=== PATIENT | male | born 1970 | race Caucasian/White ===

== ENCOUNTER 2017-04-18 12:02 | Inpatient (IN) | payer MEDICAID, OTHER ==
[~2017-04-18] VITALS: Ht 167.6 cm; Wt 119.0 kg
[2017-04-18] MEDS ORDERED: morphine 4 MG/ML VIAL IV STA (12:06)
[2017-04-18] MEDS ORDERED: ONDANSETRON 4 MG INJ IV STA (12:06)
[2017-04-18] MEDS ORDERED: NITROGLYCERIN 2% 1 GM OINT PKT TD STA (12:06)
[2017-04-18 12:29] LABS: ADD SCAN DIFF NO
[2017-04-18] MEDS ORDERED: NITROGLYCERIN (SL) 0.4 MG TAB SL PRN ×2 (12:30→14:30)
[2017-04-18 12:32] LABS: BASOPHILS % 0.4 % (0.0-2.0); EOSINOPHILS # 0.2 10^3/ul (0.0-0.5); EOSINOPHILS % 2.2 % (0.0-7.0); HEMATOCRIT 47.7 % (42.0-52.0); HEMOGLOBIN 15.9 g/dl (14.0-18.0); LYMPHOCYTES # 3.4 10^3/ul (0.8-2.9); LYMPHOCYTES % 35.9 % (15.0-51.0); MEAN CORPUSCULAR HEMOGLOBIN 28.3 pg (29.0-33.0); MEAN CORPUSCULAR HGB CONC 33.3 g/dl (32.0-37.0); MEAN PLATELET VOLUME 9.7 fl (7.4-10.4); MONOCYTES % 10.5 % (0.0-11.0); NEUTROPHIL # 4.8 10^3/ul (1.6-7.5); NEUTROPHILS % 50.7 % (39.0-77.0); PLATELET COUNT 278 10^3/UL (140-415); RED BLOOD COUNT 5.61 10^6/ul (4.70-6.10); RED CELL DISTRIBUTION WIDTH 12.7 % (11.5-14.5); WHITE BLOOD COUNT 9.4 10^3/ul (4.8-10.8)
[2017-04-18 12:48] LABS: INR 0.8; PROTIME 11.1 Sec (12.2-14.2); PT RATIO 0.9
[2017-04-18 12:49] LABS: PARTIAL THROMBOPLASTIN TIME 31.7 Sec (25.0-35.0)
--- NOTE | 2017-04-18 12:51 | RADRPT ---
PROCEDURE: XR Chest. CLINICAL INDICATION: Chest pain. TECHNIQUE: Single frontal view of the chest was obtained. COMPARISON: None FINDINGS: The soft tissues are generous. Monitoring electrodes project across the chest. The bony elements a re normal. The heart is enlarged. The cardiomediastinal silhouette and hilar structures are normal . The pulmonary vasculature is normal. There is a left-sided aorta. The lungs are clear. The costo phrenic angles are normal. IMPRESSION: 1. Mild cardiomegaly. 2. Obesity. RPTAT:AAJJ Physician Emilie Date Time Electronically viewed and signed by Physician Emilie on 04/18/2017 12:51 /
[2017-04-18 12:53] LABS: ANION GAP 13 (8-16); BLOOD UREA NITROGEN 19 mg/dl (7-20); CALCIUM 9.3 mg/dl (8.4-10.2); CARBON DIOXIDE 27 mmol/L (21-31); CHLORIDE 102 mmol/L (97-110); CREATININE 0.73 mg/dl (0.61-1.24); GLUCOSE 121 mg/dl (70-220); POTASSIUM 3.8 mmol/L (3.5-5.1); SODIUM 138 mmol/L (135-144)
[2017-04-18 13:06] LABS: TROPONIN-I < 0.012 ng/ml (0.00-0.12)
[2017-04-18] MEDS ORDERED: ONDANSETRON 4 MG INJ IV PRN (13:30)
[2017-04-18] MEDS ORDERED: ACETAMINOPHEN 325 MG TAB PO PRN (13:30)
[2017-04-18] MEDS ORDERED: hydrALAzine 20 MG INJ IV ONE (14:00)
--- NOTE | 2017-04-18 14:26 | HP ---
Date/Time of Note Date/Time of Note DATE: 04/18/17 TIME: 14:20 Assessment/Plan VTE Prophylaxis VTE Prophylaxis Intervention: SCD's Lines/Catheters IV [facility]ter Type [facility]from [facility] Saline Lock Assessment/Plan Chief Complaint/Hosp Course Assessment and plan 1. Chest pain. Will follow so troponins. Will get echocardiogram. Will get lawn and garden technician to follow. Monitor in telemetry. 2. Essential hypertension. Will provide with antihypertensives and adjust as needed 3. Obesity. Weight reduction was advised. GERD prophylaxis: PPI DVT prophylaxis: His SCDs Admission process time greater than 30 minutes Discussed plan of care with Dr. Crawford Problems: HPI/ROS Admit Date/Time Admit Date/Time Hx of Present Illness This is a 46-year-old male obese, with no reported past medical history who came to [facility] due to reports of chest pain. According to the patient had been having some chest pain more notable on exertion. He did have some associated shortness of breath. He does report the chest pain has been more intermittent more on midsternal area. Denies any chest pain on palpation of the chest. Reports he does get to 5-8 out of 10 in intensity when he does have exacerbations of the pain. He also does report having a familiar history of heart disease with his father dying of myocardial infarction at age of 74. He was brought in by [facility] due to the aformentiond issues. Upon examination he did have serial troponin that was initially negative. His initial EKG did show possible first-degree AV block with incomplete right bundle branch block. Of note he was provided with nitro in the ER. He also had a blood pressure 151/100. Of note chest x-ray showed only mild cardiomegaly. At present patient does still report having some intermittent chest pain pressure-like in nature nonradiating. We will evaluate him for the aformentioned issues. ROS 12 point review of systems obtained and entirely negative except that mentioned in history of present illness PMH/Family/Social Past Medical History Medical History: no pertinent history Family History Significant Family History: other (Father: Heart disease and from myocardial infarction at age of 74) Social History Alcohol Use: none Smoking Status: Never smoker Drug Use: none Exam/Review of Systems Vital Signs Vitals Vital Signs Date Time Temp Pulse Resp B/P Pulse Ox O2 Delivery O2 Flow Rate FiO2 04/18/17 14:15 18 149/70 98 04/18/17 12:27 Nasal Cannula 2 04/18/17 12:07 98.5 94 Exam Constitutional: alert, oriented, other (Obese) Psych: nl mood/affect Head: normocephalic Eyes: nl conjunctiva Neck: supple, No jvd Respiratory: clear to auscultation, normal air movement Cardiovascular: other Gastrointestinal: non-tender, soft Musculoskeletal: nl extremities to inspection Extremities: normal pulses Neurological: INPATIENT PHARMACIST II-XII intact, nl mental status, nl speech Labs Result Diagram: 04/18/17 1215 04/18/17 1215 Medications Medications Current Medications Acetaminophen (Tylenol Tab) 650 mg Q6H PRN PO PAIN LEVEL 1-3 OR FEVER; Start at 14:30 Acetaminophen (Tylenol Supp) 650 mg Q6H PRN OR PAIN LEVEL 1-3 OR FEVER; Start 04/18/17 at 14:30 Acetaminophen/ Hydrocodone Bitart ([place] (5/325)) 1 tab Q6H PRN PO MODERATE PAIN LEVEL 4-6; Start 04/18/17 at 14:30 Acetaminophen/ Hydrocodone Bitart ([place] (5/325)) 2 tab Q6H PRN PO SEVERE PAIN LEVEL 7-10; Start 04/18/17 at 14:30 Morphine Sulfate (morphine) 2 mg Q4H PRN IV SEVERE PAIN LEVEL 7-10; Start 04/18 at 14:30 Docusate Sodium (Colace) 100 mg Q12H PRN PO CONSTIPATION; Start 04/18/17 at 14: 30 Magnesium Hydroxide (Milk Of Mag) 30 ml DAILY PRN PO CONSTIPATION; Start at 14:30 Bisacodyl (Dulcolax Supp) 10 mg DAILY PRN [place] CONSTIPATION; Start 04/18/17 at 14 :30 Pantoprazole (Protonix Iv) 40 mg DAILY@06 IV ; Start 04/19/17 at 06:00 Aspirin (Aspirin) 81 mg DAILY PO ; Start 04/20/17 at 09:00 Metoprolol Tartrate (Lopressor) 12.5 mg BID PO ; Start 04/18/17 at 21:00 Nitroglycerin (Nitroglycerin (Sl Tab) 0.4 Mg) 1 tab Q5M PRN SL CHEST PAIN; Start 04/18/17 at 14:30 REGIDOR,FRIEDA Apr 18, 2017 14:26
[2017-04-18] MEDS ORDERED: MAGNESIUM HYDROXIDE 30ML CUP PO PRN (14:30)
[2017-04-18] MEDS ORDERED: HYDROCODONE/APAP (5/325) TAB PO PRN ×2 (14:30)
[2017-04-18] MEDS ORDERED: NACL 0.9% 3 ML SYG IV SCH (14:30)
[2017-04-18] MEDS ORDERED: ACETAMINOPHEN 650 MG SUPP PR PRN (14:30)
[2017-04-18] MEDS ORDERED: morphine 2 MG INJ IV PRN (14:30)
[2017-04-18] MEDS ORDERED: BISACODYL 10 MG SUPP PR PRN (14:30)
[2017-04-18] MEDS ORDERED: DOCUSATE SODIUM 100 MG CAP PO PRN (14:30)
[2017-04-18 14:55] VITALS: PULSE 86
[2017-04-18 15:05] VITALS: BP 132/68; PULSE 87; RESP 18
[2017-04-18 15:16] VITALS: Ht 167.6 cm; Wt 119.0 kg
--- NOTE | 2017-04-18 15:41 | ERA ---
ER Documentation Chief Complaint Date/Time DATE: 04/18/17 TIME: 15:39 Chief Complaint CP FOR A FEW DAYS SENT BY CLINIC. HIGH BP AND DIZZINESS PER PT. NO NEURO HPI Patient is a 46-year-old male with hypertension who presents with chest pain. He was brought in by ambulance. He was given aspirin and 2 nitroglycerin. He has had this pain for the past 5 days but it comes and goes. It has been worsening in intensity. It is in the midsternal area. He has palpitations as well. He was sent from the [facility] where he saw his doctor who sent him to the emergency department for further workup and admission. ROS All systems reviewed and are negative except as per history of present illness. Medications Home Meds No Active Prescriptions or Reported Meds Allergies Allergies: Coded Allergies: Penicillins (Verified Allergy, Severe, 04/18/17) ondansetron (Verified Allergy, Severe, 04/18/17) PMhx/Soc Positive for hypertension History of Surgery: No Anesthesia Reaction: No Hx Neurological Disorder: No Hx Respiratory Disorders: No Hx Cardiac Disorders: No Hx Psychiatric Problems: No Hx Miscellaneous Medical Probl: No Hx Alcohol Use: No Hx Substance Use: No Hx Tobacco Use: No Smoking Status: Never smoker FmHx Family History: coronary disease Physical Exam Vitals Vital Signs Date Time Temp Pulse Resp B/P Pulse Ox O2 Delivery O2 Flow Rate FiO2 04/18/17 12:27 Nasal Cannula 2 04/18/17 12:07 98.5 94 21 151/100 98 Physical Exam Const: No acute distress Head: Atraumatic Eyes: Normal Conjunctiva ENT: Normal External Ears, Nose and Mouth. Neck: Full range of motion..~ No meningismus. Resp: Clear to auscultation bilaterally Cardio: Regular rate and rhythm, no murmurs Abd: Soft, non tender, non distended. Normal bowel sounds Skin: No petechiae or rashes Back: No midline or flank tenderness Ext: No cyanosis, or edema Neur: Awake and alert Psych: Normal Mood and Affect Result Diagram: 04/18/17 1215 04/18/17 1215 Results 24 hrs Laboratory Tests Test 04/18/17 12:15 White Blood Count 9.410^3/ul Red Blood Count 5.6110^6/ul Hemoglobin 15.9g/dl Hematocrit 47.7% Mean Corpuscular Volume 85.0fl Mean Corpuscular Hemoglobin 28.3pg Mean Corpuscular Hemoglobin Concent 33.3g/dl Red Cell Distribution Width 12.7% Platelet Count 68984^3/UL Mean Platelet Volume 9.7fl Neutrophils % 50.7% Lymphocytes % 35.9% Monocytes % 10.5% Eosinophils % 2.2% Basophils % 0.4% Nucleated Red Blood Cells % 0.0/100WBC Neutrophils # 4.810^3/ul Lymphocytes # 3.410^3/ul Monocytes # 1.010^3/ul Eosinophils # 0.210^3/ul Basophils # 0.010^3/ul Nucleated Red Blood Cells # 0.010^3/ul Prothrombin Time 11.1Sec Prothrombin Time Ratio 0.9 INR International Normalized Ratio 0.80 Activated Partial Thromboplast Time 31.7Sec Sodium Level 138mmol/L Potassium Level 3.8mmol/L Chloride Level 102mmol/L Carbon Dioxide Level 27mmol/L Anion Gap 13 Blood Urea Nitrogen 19mg/dl Creatinine 0.73mg/dl Glucose Level 121mg/dl Calcium Level 9.3mg/dl Troponin I < 0.012ng/ml Current Medications Medications (Trade) Dose Ordered Sig/Cindy Route PRN Reason Start Time Stop Time Status Last Admin Dose Admin Nitroglycerin (Nitroglycerin 2% Oint) 1 inch ONCE STAT TD 04/18/17 12:06 04/18/17 12:08 DC 04/18/17 12:39 Nitroglycerin (Nitroglycerin (Sl Tab) 0.4 Mg) 1 tab Q5M UP TO 3 DOSES PRN SL CHEST PAIN 04/18/17 12:30 Morphine Sulfate (morphine) 4 mg ONCE STAT IV 04/18/17 12:06 04/18/17 12:08 DC 04/18/17 12:40 Ondansetron HCl (Zofran Inj) 4 mg ONCE STAT IV 04/18/17 12:06 04/18/17 12:08 DC 04/18/17 12:39 Procedures/MDM EKG read by me: Rate/Rhythm: Regular rate and rhythm at a normal rate Intervals: Normal Impression: No evidence of ischemia or arrhythmia Chest x-ray shows no pneumonia or pneumothorax per radiology. Patient is a 46-year-old male with cardiac risk factors who presents with chest pain. He was given aspirin nitroglycerin and feels better. He was given nitroglycerin and morphine in the emergency department. The patient will be admitted to the care of Dr. Crawford from the panel team for admission for further workup for acute coronary syndrome. I doubt pneumonia, pneumothorax, pulmonary embolism, or aortic dissection. Departure Diagnosis: Primary Impression: Chest pain Qualified Code: R07.9 - Chest pain, unspecified type Condition: ANNE Rodriguez MD Apr 18, 2017 15:41
[2017-04-18 16:20] VITALS: PULSE 80
[2017-04-18 16:47] LABS: CREATINE KINASE 66 IU/L (23-200)
[2017-04-18 17:01] LABS: CK-MB 1.24 ng/ml (0.0-2.4); TROPONIN-I < 0.012 ng/ml (0.00-0.12)
[2017-04-18] MEDS: ACETAMINOPHEN 325 MG TAB PO PRN (18:05)
[2017-04-18 18:54] LABS: CREATINE KINASE 61 IU/L (23-200)
[2017-04-18 19:07] LABS: CK-MB 1.15 ng/ml (0.0-2.4); TROPONIN-I < 0.012 ng/ml (0.00-0.12)
[2017-04-18] MEDS: METOPROLOL 25 MG TAB PO SCH (20:15)
[2017-04-18 20:35] VITALS: BP 115/54; RESP 20
[2017-04-18 20:41] VITALS: PULSE 80
[2017-04-18 21:02] LABS: CREATINE KINASE 59 IU/L (23-200)
[2017-04-18 21:18] LABS: CK-MB 1.08 ng/ml (0.0-2.4); TROPONIN-I < 0.012 ng/ml (0.00-0.12)
[2017-04-19] VITALS (10 sets, daily range): BP systolic 126–157; BP diastolic 57–80; PULSE 67–96; RESP 18–20
[2017-04-19 01:39] LABS: CREATINE KINASE 64 IU/L (23-200)
[2017-04-19 01:57] LABS: CK-MB 1.14 ng/ml (0.0-2.4); TROPONIN-I < 0.012 ng/ml (0.00-0.12)
[2017-04-19] MEDS: ACETAMINOPHEN 325 MG TAB PO PRN (03:23)
[2017-04-19] MEDS ORDERED: PANTOPRAZOLE 40 MG INJ IV SCH (06:00)
[2017-04-19 07:27] LABS: ALBUMIN 4.4 g/dl (3.3-4.9); ALBUMIN/GLOBULIN RATIO 1.46; BILIRUBIN,INDIRECT 0.5 mg/dl (0-1.1); BILIRUBIN,TOTAL 0.5 mg/dl (0.2-1.3); CALCIUM 9.1 mg/dl (8.4-10.2); CHOL/HDL RATIO 5.2 RATIO; CREATININE 0.68 mg/dl (0.61-1.24); PHOSPHORUS 3.3 mg/dl (2.5-4.9); TOTAL PROTEIN 7.4 g/dl (6.1-8.1)
[2017-04-19 07:41] LABS: T3 UPTAKE 32.6 % (23.5-40.5)
[2017-04-19 07:55] LABS: THYROID STIMULATING HORMONE 2.98 MIU/L (0.465-4.680)
[2017-04-19] MEDS: METOPROLOL 25 MG TAB PO SCH (08:26)
--- NOTE | 2017-04-19 14:37 | PN ---
DATE: 04/19/2017 SUBJECTIVE DATA: Complains of some chest discomfort. Complains of left lower extremity cramping pain. OBJECTIVE DATA: VITAL SIGNS: Temperature 98.5, pulse rate 74, respiratory rate 18, blood pressure 127/80, oxygen saturation 97% on room air. GENERAL: This is an obese male lying in bed in no apparent distress. HEENT: Head normocephalic and atraumatic. Eyes: Anicteric sclerae. Conjunctivae clear. ENT: Nasal septum is midline. Oral mucosa is moist. NECK: Supple. No JVD noticed. RESPIRATORY: Bilaterally clear to auscultation. No adventitious breath sounds. No use of accessory muscles of respiration. CARDIAC: Regular rate and rhythm. S1 and S2 heard. ABDOMEN: Soft, nontender and nondistended. Bowel sounds positive in all 4 quadrants. GENITOURINARY: Deferred. EXTREMITIES: No cyanosis, no clubbing, no edema. Peripheral pulses palpable. NEUROLOGIC: The patient is awake, alert and oriented. Cranial nerves are grossly intact. LABORATORY AND DIAGNOSTIC DATA: Sodium 140, potassium 4.0, chloride 103, carbon dioxide 20, anion gap 13, BUN 17, creatinine 0.68, glucose 105, calcium 9.1, phosphorus 3.3, magnesium 2.0, hemoglobin A1c 6.0. Triglycerides 156, total cholesterol 210, LDL 139, HDL 40. ASSESSMENT AND PLAN 1. Chest pain. To rule out acute coronary syndrome. Serial troponins are so far negative. Pending 2D echocardiogram. Pending cardiology evaluation. The patient will be continued on aspirin. 2. Essential hypertension. The patient will be continued on antihypertensives. 3. Dyslipidemia. Suboptimal fasting lipid panel. Will reinforce a low cholesterol diet. We will obtain dietary consult. 5. Prediabetes. Hemoglobin A1c of 6.0. Will obtain dietary consult. 6. Obesity. BMI of 42.3 kilograms per meter squared. Will obtain dietary consult. 7. Fluid, electrolytes and nutrition. Low cholesterol diet. 8. Deep venous thrombosis prophylaxis with ambulation. 9. Gastrointestinal prophylaxis with proton pump inhibitors. 10. Continue current management. Await cardiology evaluation. Case discussed with Dr. Park. LEO PARK MD, AM/CLAIR Conf#: [id number] DID#: [id number] [facility]
--- NOTE | 2017-04-19 15:27 | RADRPT ---
Echocardiogram Report Patient Name: MATILDE CERRATO Gender: Male Date: 1970 Study Date: 19-Apr-2017 Engineering Systems Analyst: TORIE Location: E Ref. Physician: FRIEDA WELCH Quality: Adequate Procedures: Transthoracic echocardiogram with complete 2D, M-Mode, and Doppler examination. Indications: Chest Pain. 2D/M Mode Doppler Measurement Value Normal Ranges Measurement Value Normal Ranges AoR Diam MM 3.3 cm AV Peak Alex 1.1 m/sec ACS MM 2.3 cm AV Peak PG 5.3 mmHg LVIDd 2D 4.2 3.5 - 5.6 cm LVOT Peak Alex 0.9 m/sec LVIDs 2D 2.8 2.1 - 4.1 cm LVOT Peak PG 3.5 mmHg LVPWd 2D 1.3 0.6 - 1.1 cm MV E Peak Alex 0.7 m/sec IVSd 2D 1.7 0.6 - 1.1 cm MV A Peak Alex 0.4 m/sec EDV 2D 80.6 cm3 MV E/A 1.6 ESV 2D 21.7 cm3 MV Decel Time 137 msec LA Dimen 2D 4.3 2.3 - 4.0 cm MV Decel [place] 5 MV E/A 1.6 PV Peak Alex 0.8 m/sec PV Peak PG 3.0 mmHg Findings Left Ventricle: Normal left ventricular systolic function. Normal left ventricular cavity size. Mild concentric left ventricular hypertrophy. Ejection fraction is visually estimated at 5560 %. Tissue Doppler/Mitral Doppler indices are within normal limits. Right Ventricle: Normal right ventricular size. Left Atrium: There is mild enlargement of left atrium. Right Atrium: The right atrium is normal in size. Atrial Septum: Normal atrial septum. Mitral Valve: Normal appearance and function of the mitral valve with trace physiologic regurgitation. Aortic Valve: No significant aortic stenosis or insufficiency. Normal trileaflet aortic valve structure. Tricuspid Valve: Normal appearance and function of the tricuspid valve with trace physiologic regurgitation. Pulmonic Valve: Normal pulmonic valve appearance. No evidence of pulmonic regurgitation. Pericardium: Normal pericardium with no significant pericardial effusion. No pleural effusion noted. Aorta: Normal aortic root. IVC: Normal size and normal respiratory collapse consistent with normal right atrial pressure. Pulmonary Artery: Normal pulmonary artery size. Conclusions 1.The left ventricle is normal in size and systolic function. 2.Estimated left ventricular ejection fraction of 55-60%. 3.Mild concentric left ventricular hypertrophy. 4.Mild left atrial enlargement. Electronically Signed By: Maikel Zhu 19-Apr-2017 15:26:13 -0700 Patient Name: MATILDE CERRATO Study Date: 19-Apr-[id number]
--- NOTE | 2017-04-19 16:23 | CONS ---
Date/Time of Note Date/Time of Note DATE: 04/19/17 TIME: 16:18 Assessment/Plan Assessment/Plan Chief Complaint/Hosp Course Assessment: Chest pain - ruled out for myocardial infarction Hypertension Dyslipidemia Pre-diabetes Obesity Recommendations: -echocardiogram showed normal LVEF 55-60% without segmental wall motion abnormalities, mild LVH -continue aspirin 81mg daily -start lisinopril 10mg daily, up titrate as needed -start atorvastatin 10mg daily -outpatient cardiac stress testing Problems: Consultation Date/Type/Reason Admit Date/Time Type of Consultation: Cardiology Reason for Consultation chest pain Hx of Present Illness The patient is a 46 year-old male who presents with chest pain. He describes six days of intermittent chest pain with associated lightheadedness. His EKG showed normal sinus rhythm, first degree AV block, incomplete right bundle branch block, and no acute ischemic changes. Serial troponins have been negative x 3. His symptoms have resolved and he has no further chest pain. 14 point review of systems negative other than per HPI. Past Medical History Medical History: no pertinent history Past Surgical History Past Surgical Hx: no surgical history Family History Significant Family History: heart disease (father with myocardial infarction in his 70s) Social History Alcohol Use: none Smoking Status: Never smoker Drug Use: none Exam/Review of Systems Vital Signs Vitals Vital Signs Date Time Temp Pulse Resp B/P Pulse Ox O2 Delivery O2 Flow Rate FiO2 04/19/17 16:14 75 04/19/17 15:24 98.5 18 140/77 97 04/18/17 15:05 Room Air 04/18/17 12:27 2 Intake and Output 04/18/17 04/18/17 04/19/17 15:00 23:00 07:00 Intake Total 720 ml 600 ml Balance 720 ml 600 ml Exam Constitutional: alert, obese, well developed Psych: nl mood/affect, no complaints Head: atraumatic, normocephalic Eyes: nl conjunctiva, nl lids ENMT: nl external ears & nose, nl nasal mucosa & septum Neck: non-tender, supple, No jvd Respiratory: clear to auscultation, normal air movement Cardiovascular: regular rate and rhythm, No murmurs/extra sounds Gastrointestinal: non-tender, soft Musculoskeletal: nl extremities to inspection, No swelling Extremities: No clubbing, No cyanosis, No edema Neurological: nl mental status, nl speech Skin: nl turgor, No rash or lesions Results Result Diagram: 04/18/17 1215 04/19/17 0600 Results 24 hrs Laboratory Tests Test 04/18/17 18:07 04/18/17 20:15 04/19/17 00:38 04/19/17 06:00 Creatine Kinase 61 59 64 Creatine Kinase Index 1.9 1.8 1.8 Creatinine Kinase MB (Mass) 1.15 1.08 1.14 Troponin I < 0.012 < 0.012 < 0.012 Sodium Level 140 Potassium Level 4.0 Chloride Level 103 Carbon Dioxide Level 28 Anion Gap 13 Blood Urea Nitrogen 17 Creatinine 0.68 Glucose Level 105 Hemoglobin A1c 6.0 H Calcium Level 9.1 Phosphorus Level 3.3 Magnesium Level 2.0 Total Bilirubin 0.5 Direct Bilirubin 0.00 Indirect Bilirubin 0.5 Aspartate Amino Transf (AST/SGOT) 31 Alanine Aminotransferase (ALT/SGPT) 52 Alkaline Phosphatase 68 Total Protein 7.4 Albumin 4.4 Globulin 3.00 Albumin/Globulin Ratio 1.46 Triglycerides Level 156 H Cholesterol Level 210 H LDL Cholesterol, Calculated 139 HDL Cholesterol 40 Cholesterol/HDL Ratio 5.2 Thyroid Stimulating Hormone (TSH) 2.980 Free Thyroxine Index 2.90 Thyroxine (T4) 8.9 Triiodothyronine (T3) Uptake 32.6 Medications Medications Current Medications Acetaminophen (Tylenol Tab) 650 mg Q6H PRN PO PAIN LEVEL 1-3 OR FEVER Last administered on 04/19/17 03:23; Admin Dose 650 MG; Start 04/18/17 at 14:30 Acetaminophen (Tylenol Supp) 650 mg Q6H PRN [place] PAIN LEVEL 1-3 OR FEVER; Start 04/18/17 at 14:30 Acetaminophen/ Hydrocodone Bitart ([place] (5/325)) 1 tab Q6H PRN PO MODERATE PAIN LEVEL 4-6; Start 04/18/17 at 14:30 Acetaminophen/ Hydrocodone Bitart ([place] (5/325)) 2 tab Q6H PRN PO SEVERE PAIN LEVEL 7-10; Start 04/18/17 at 14:30 Morphine Sulfate (morphine) 2 mg Q4H PRN IV SEVERE PAIN LEVEL 7-10 Last administered on 04/19/17 07:02; Admin Dose 2 MG; Start 04/18/17 at 14:30 Docusate Sodium (Colace) 100 mg Q12H PRN PO CONSTIPATION; Start 04/18/17 at 14: 30 Magnesium Hydroxide (Milk Of Mag) 30 ml DAILY PRN PO CONSTIPATION; Start at 14:30 Bisacodyl (Dulcolax Supp) 10 mg DAILY PRN [place] CONSTIPATION; Start 04/18/17 at 14 :30 Aspirin (Aspirin) 81 mg DAILY PO ; Start 04/20/17 at 09:00 Metoprolol Tartrate (Lopressor) 12.5 mg BID PO Last administered on 04/19/17t 08:26; Admin Dose 12.5 MG; Start 04/18/17 at 21:00 Nitroglycerin (Nitroglycerin (Sl Tab) 0.4 Mg) 1 tab Q5M PRN SL CHEST PAIN; Start 04/18/17 at 14:30 Pantoprazole (Protonix Tab) 40 mg DAILY@06 PO ; Start 04/20/17 at 06:00 LES AGUILAR MD Apr 19, 2017 16:23
[2017-04-19] MEDS: LISINOPRIL 10 MG TAB PO SCH (16:56)
[2017-04-19] MEDS ORDERED: ATORVASTATIN 10 MG TAB PO SCH (21:00)
[2017-04-20] VITALS (9 sets, daily range): BP systolic 115–126; BP diastolic 61–73; PULSE 64–74; RESP 20
[2017-04-20] MEDS ORDERED: PANTOPRAZOLE (EC) 40 MG TAB PO SCH (06:00)
[2017-04-20 07:27] LABS: ADD SCAN DIFF NO
[2017-04-20 07:30] LABS: BASOPHILS % 0.4 % (0.0-2.0); EOSINOPHILS # 0.4 10^3/ul (0.0-0.5); EOSINOPHILS % 3.8 % (0.0-7.0); HEMATOCRIT 46.8 % (42.0-52.0); HEMOGLOBIN 15.8 g/dl (14.0-18.0); LYMPHOCYTES # 2.5 10^3/ul (0.8-2.9); LYMPHOCYTES % 25.3 % (15.0-51.0); MEAN CORPUSCULAR HEMOGLOBIN 28.6 pg (29.0-33.0); MEAN CORPUSCULAR HGB CONC 33.8 g/dl (32.0-37.0); MEAN CORPUSCULAR VOLUME 84.8 fl (82.0-101.0); MEAN PLATELET VOLUME 9.7 fl (7.4-10.4); MONOCYTE # 1.2 10^3/ul (0.3-0.9); MONOCYTES % 12.1 % (0.0-11.0); NEUTROPHIL # 5.7 10^3/ul (1.6-7.5); NEUTROPHILS % 58.1 % (39.0-77.0); PLATELET COUNT 291 10^3/UL (140-415); RED BLOOD COUNT 5.52 10^6/ul (4.70-6.10); RED CELL DISTRIBUTION WIDTH 12.9 % (11.5-14.5); WHITE BLOOD COUNT 9.9 10^3/ul (4.8-10.8)
[2017-04-20 07:58] LABS: CALCIUM 8.9 mg/dl (8.4-10.2); CREATININE 0.86 mg/dl (0.61-1.24); POTASSIUM 4.4 mmol/L (3.5-5.1)
[2017-04-20 08:04] LABS: MAGNESIUM 2.1 mg/dl (1.7-2.5); PHOSPHORUS 4.1 mg/dl (2.5-4.9)
[2017-04-20] MEDS ORDERED: ASPIRIN 81 MG TAB PO SCH (09:00)
--- NOTE | 2017-04-20 09:01 | PDOCDIS ---
Discharge Instructions DIAGNOSIS Discharge Diagnosis Dyslipidemia. Prediabetes. CONDITION Patient Condition: Stable HOME CARE INSTRUCTIONS: Diet Instructions: Low Fat /CholesterolSpecial Diet: Low carbohydrate FOLLOW UP/APPOINTMENTS Follow-up Plan Morales Rebollar MD Specialty: Internal Medicine Office Address: [address] [place] [address] [place], [place] [id number] Office OTHER ORDERS: Other Orders: 1. Take medications as per prescription. 2. Take a low-cholesterol, low carbohydrate diet. 3. Resume activities as tolerated. 4. Follow-up with your primary care physician in 1 week. If you do not have a primary care physician, please call Dr. Morales Rebollar's office. Please have your primary care physician arrange for outpatient cardiology follow-up for a stress test. 5. Please call 911 or go to the nearest emergency room if you have any significant chest pain or shortness of breath. LEO FIELDS NP Apr 20, 2017 09:01
[2017-04-20] MEDS ORDERED: LISI10TA2 PO (09:02)
[2017-04-20] MEDS ORDERED: ASPI81TA3 PO (09:02)
[2017-04-20] MEDS ORDERED: ATOR10TA65 PO (09:02)
[2017-04-20] MEDS: LISINOPRIL 10 MG TAB PO SCH (09:34)
--- NOTE | 2017-04-20 09:45 | DS ---
DATE OF ADMISSION: 04/18/2017 DATE OF DISCHARGE: 04/20/2017 FINAL DIAGNOSES: 1. Chest pain. Acute coronary syndrome ruled out. 2. Essential hypertension. 3. Dyslipidemia. 4. Prediabetes. 5. Obesity. CONSULTATIONS: Maikel Zhu MD HOSPITAL COURSE: This is a 46-year-old obese male with no significant past medical history, as per the patient, who came to [facility] because of reports of chest pain. According to the patient, he has been having some chest pain, more noticeable on exertion. The patient also complained of some associated shortness of breath. The patient also has a family history of heart disease. Provided the patient's history of present illness, a clinical decision was made to admit the patient to inpatient setting to have him further evaluated. The patient was admitted to inpatient telemetry floor. A cardiology consult was obtained. Serial troponins were obtained. The patient's serial troponins remained negative. The patient's 2D echocardiogram showed preserved left ventricular ejection fraction. The patient was noticed to have essential hypertension. The patient was started on appropriate antihypertensives. The patient was noticed to be prediabetic with a hemoglobin A1c of 6.0. The patient was also noticed to have dyslipidemia with high triglycerides, high total cholesterol and suboptimal LDL. Consequently, the patient was started on statins. Weight reduction was advised. Cardiology evaluated the patient and recommended outpatient cardiac stress test. The patient was cleared by cardiology to be discharged home. DISCHARGE DISPOSITION AND PLAN: The patient will be discharged home today. The patient was instructed to take medications as per prescription. He was instructed to take a low-cholesterol, low-carbohydrate diet. The patient was instructed to resume activities as tolerated. He was instructed to follow up with his primary care physician in 1 week and if he does not have a primary care physician, to please call Dr. Morales Rebollar's office. The patient was instructed to have his primary care physician to arrange for outpatient cardiology followup for a stress test. He was instructed to call 911 or go to the nearest emergency room if he has any significant chest pain or shortness of breath. The patient verbalized understanding of his discharge instructions. CONDITION AT DISCHARGE: Stable. DISCHARGE PHYSICAL EXAMINATION: GENERAL: This is an obese male lying in bed in no apparent distress. HEENT: Head normocephalic and atraumatic. Eyes: Anicteric sclerae. Conjunctivae clear. ENT: Nasal septum is midline. Oral mucosa is moist. NECK: Supple. No JVD noticed. RESPIRATORY: Bilaterally clear to auscultation. No adventitious breath sounds. No use of accessory muscles of respiration. CARDIAC: Regular rate and rhythm. S1 and S2 heard. ABDOMEN: Soft, nontender and nondistended. Bowel sounds positive in all 4 quadrants. GENITOURINARY: Deferred. EXTREMITIES: No cyanosis, no clubbing, no edema. Peripheral pulses palpable. NEUROLOGIC: The patient is awake, alert and oriented. Cranial nerves are grossly intact. DISCHARGE MEDICATIONS 1. Aspirin 81 mg p.o. daily. 2. Atorvastatin 10 mg p.o. at bedtime. 3. Lisinopril 10 mg p.o. daily. PERTINENT LABORATORY AND DIAGNOSTIC DATA: 1. 2D echocardiogram: Ejection fraction of 55% to 60%. Mild concentric left ventricular hypertrophy. Mild left atrial enlargement. 2. Chest x-ray on admission: Mild cardiomegaly. 3. Recent CBC: WBC 9.9, hemoglobin 15.8, hematocrit 46.8, platelet count 291. 4. Latest BMP: Sodium 138, potassium 4.4, chloride 90, carbon dioxide 31, anion gap 13, BUN 17, creatinine 0.86, glucose 105, calcium 8.9, phosphorus 4.1 , on admission 2.1. 5. Hemoglobin A1c 6.0. 6. Fasting lipid panel: Triglycerides 156, total cholesterol 210, LDL 139, HDL 40. At this time, I would like to thank Dr. Maikel Zhu for seeing the patient and providing clinical recommendations. The case and management of this patient was fully discussed with Dr. Enriquez. Approximately 35 minutes was spent on coordinating the discharge of this patient. LEO ENRIQUEZ MD, AM/CLAIR Conf#: [id number] DID#: [id number]
--- NOTE | 2017-04-20 17:28 | CONS ---
Date/Time of Note Date/Time of Note DATE: 04/20/17 TIME: 17:27 Assessment/Plan Assessment/Plan Chief Complaint/Hosp Course Assessment: Chest pain - ruled out for myocardial infarction Hypertension Dyslipidemia Pre-diabetes Obesity Recommendations: -echocardiogram showed normal LVEF 55-60% without segmental wall motion abnormalities, mild LVH -aspirin 81mg daily -lisinopril 10mg daily, up titrate as needed -atorvastatin 10mg daily -outpatient cardiac stress testing Problems: Consultation Date/Type/Reason Admit Date/Time Apr 18, 2017 at 13:21 Initial Consult Date Type of Consultation: Cardiology 24 HR Interval Summary Free Text/Dictation No acute events. No chest pain. Detailed Summary Additional Comments 14 point review of systems without changes. Exam/Review of Systems Vital Signs Vitals Vital Signs Date Time Temp Pulse Resp B/P Pulse Ox O2 Delivery O2 Flow Rate FiO2 04/20/17 16:12 69 04/20/17 15:08 98.3 20 115/61 96 04/18/17 15:05 Room Air 04/18/17 12:27 2 Intake and Output 04/19/17 04/19/17 04/20/17 15:00 23:00 07:00 Intake Total 1200 ml 600 ml Balance 1200 ml 600 ml Exam Constitutional: alert, obese, well developed Psych: nl mood/affect, no complaints Head: atraumatic, normocephalic Eyes: nl conjunctiva, nl lids ENMT: nl external ears & nose, nl nasal mucosa & septum Neck: non-tender, supple, No jvd Respiratory: clear to auscultation, normal air movement Cardiovascular: regular rate and rhythm, No murmurs/extra sounds Gastrointestinal: non-tender, soft Musculoskeletal: nl extremities to inspection, No swelling Extremities: No clubbing, No cyanosis, No edema Neurological: nl mental status, nl speech Skin: nl turgor, No rash or lesions Results Result Diagram: 04/20/17 0630 04/20/17 0630 Results 24 hrs Laboratory Tests Test 04/20/17 06:30 White Blood Count 9.9 Red Blood Count 5.52 Hemoglobin 15.8 Hematocrit 46.8 Mean Corpuscular Volume 84.8 Mean Corpuscular Hemoglobin 28.6 L Mean Corpuscular Hemoglobin Concent 33.8 Red Cell Distribution Width 12.9 Platelet Count 291 Mean Platelet Volume 9.7 Neutrophils % 58.1 Lymphocytes % 25.3 Monocytes % 12.1 H Eosinophils % 3.8 Basophils % 0.4 Nucleated Red Blood Cells % 0.0 Neutrophils # 5.7 Lymphocytes # 2.5 Monocytes # 1.2 H Eosinophils # 0.4 Basophils # 0.0 Nucleated Red Blood Cells # 0.0 Sodium Level 138 Potassium Level 4.4 Chloride Level 98 Carbon Dioxide Level 31 Anion Gap 13 Blood Urea Nitrogen 17 Creatinine 0.86 Glucose Level 105 Calcium Level 8.9 Phosphorus Level 4.1 Magnesium Level 2.1 Medications Medications Current Medications Acetaminophen (Tylenol Tab) 650 mg Q6H PRN PO PAIN LEVEL 1-3 OR FEVER Last administered on 04/19/17 03:23; Admin Dose 650 MG; Start 04/18/17 at 14:30 Acetaminophen (Tylenol Supp) 650 mg Q6H PRN MS PAIN LEVEL 1-3 OR FEVER; Start 04/18/17 at 14:30 Acetaminophen/ Hydrocodone Bitart ([place] (5/325)) 1 tab Q6H PRN PO MODERATE PAIN LEVEL 4-6; Start 04/18/17 at 14:30 Acetaminophen/ Hydrocodone Bitart ([place] (5/325)) 2 tab Q6H PRN PO SEVERE PAIN LEVEL 7-10; Start 04/18/17 at 14:30 Morphine Sulfate (morphine) 2 mg Q4H PRN IV SEVERE PAIN LEVEL 7-10 Last administered on 04/19/17 07:02; Admin Dose 2 MG; Start 04/18/17 at 14:30 Docusate Sodium (Colace) 100 mg Q12H PRN PO CONSTIPATION; Start 04/18/17 at 14: 30 Magnesium Hydroxide (Milk Of Mag) 30 ml DAILY PRN PO CONSTIPATION; Start at 14:30 Bisacodyl (Dulcolax Supp) 10 mg DAILY PRN MS CONSTIPATION; Start 04/18/17 at 14 :30 Aspirin (Aspirin) 81 mg DAILY PO Last administered on 04/20/17 09:34; Admin Dose 81 MG; Start 04/20/17 at 09:00 Nitroglycerin (Nitroglycerin (Sl Tab) 0.4 Mg) 1 tab Q5M PRN SL CHEST PAIN; Start 04/18/17 at 14:30 Pantoprazole (Protonix Tab) 40 mg DAILY@06 PO Last administered on 04/20/17 06 :14; Admin Dose 40 MG; Start 04/20/17 at 06:00 Lisinopril (Zestril) 10 mg DAILY PO Last administered on 04/20/17 09:34; Admin Dose 10 MG; Start 04/19/17 at 16:30 Atorvastatin Calcium (Lipitor) 10 mg HS PO Last administered on 04/19/17 20:50 ; Admin Dose 10 MG; Start 04/19/17 at 21:00 LES AGUILAR MD Apr 20, 2017 17:28
== END 2017-04-20 18:30 | disposition home or self-care (01) | DRG 313 ==
LOC: E/R 12:02 → TEL 13:21
PROVIDERS: ADMIT Internal Medicine; ATTEND Internal Medicine
DX: R07.9 Chest pain, unspecified (principal); Z68.41 Body mass index [BMI] 40.0-44.9, adult; I10 Essential (primary) hypertension; E78.5 Hyperlipidemia, unspecified; R73.03 Prediabetes; E66.9 Obesity, unspecified; Z79.82 Long term (current) use of aspirin; Z88.0 Allergy status to penicillin
CPT/HCPCS: 36415; 71010; 80048; 80053; 80061; 82550; 82553; 83036; 83735; 83880; 84100; 84436; 84443; 84479; 84484; 85025; 85610; 85730; 93005; 93306; 96374; 96375; C9113; J2270; J2405